=== PATIENT | female | born 1965 | race Caucasian/White ===

== ENCOUNTER → 2019-09-02 | Outpatient (REF) | payer BC ==
[2019-09-02 12:40] LABS: TOTAL 25(OH) VITAMIN D 36.1 NG/ML (30.0-100.0); VITAMIN B12 LEVEL 513 PG/ML
[2019-09-02 12:50] LABS: C REACTIVE PROTEIN QUANTITATIV < 0.30 MG/DL (0.00-0.30); FERRITIN 6 NG/ML (8-252)
== END ==
LOC: M LAB REF 11:24
PROVIDERS: ATTEND Internal Medicine
DX: Z98.84 Bariatric surgery status (principal)

== ENCOUNTER → 2020-09-07 | Outpatient (REF) | payer BC | LOC: M LAB REF 16:11 | PROVIDERS: ATTEND Internal Medicine | DX: Z98.84 Bariatric surgery status (principal) ==

== ENCOUNTER → 2020-12-21 | Outpatient (REF) | payer BC | LOC: M LAB REF 17:00 | PROVIDERS: ATTEND Internal Medicine | DX: Z80.41 Family history of malignant neoplasm of ovary (principal) ==

== ENCOUNTER → 2021-10-05 | Outpatient (CLI) | payer BC | LOC: M WHC 08:53 | PROVIDERS: ATTEND Orthopaedic Surgery | DX: M16.11 Unilateral primary osteoarthritis, right hip (principal); M85.89 Other specified disorders of bone density and structure, multiple sites ==

== ENCOUNTER → 2021-12-27 | Outpatient (REF) | payer BC ==
[2021-12-27 13:39] LABS: C REACTIVE PROTEIN QUANTITATIV < 0.30 MG/DL (0.00-0.30); FERRITIN 7 NG/ML (8-252)
[2021-12-27 14:14] LABS: FOLATE 4.3 NG/ML; VITAMIN B12 LEVEL 346 PG/ML
== END ==
LOC: M LAB REF 11:57
PROVIDERS: ATTEND Internal Medicine
DX: M25.50 Pain in unspecified joint (principal); Z98.84 Bariatric surgery status

== ENCOUNTER → 2022-05-11 | Outpatient (REF) | payer BC ==
[2022-05-11 17:41] LABS: FERRITIN 3.2 NG/ML (7.3-270.7)
[2022-05-12 10:02] LABS: PERCENT SATURATION 13.2 % (13.2-45.0)
[2022-05-12 10:10] LABS: FOLATE 7.8 NG/ML (>5.4)
== END ==
LOC: M LAB REF 16:14
PROVIDERS: ATTEND Internal Medicine
DX: D69.6 Thrombocytopenia, unspecified (principal)

== ENCOUNTER → 2022-06-29 | Outpatient (REF) | payer BC, MEDICAID ==
[~2022-06-29] MED LIST: DULO1CAP6; GABA-282; HYDR200T46; LEVO88TA3; OMEP-173; SUMA25TA3; TOPI100T9
== END ==
LOC: M LAB REF 12:13
PROVIDERS: ATTEND Internal Medicine
DX: Z98.84 Bariatric surgery status (principal)

== ENCOUNTER → 2022-08-23 | Outpatient (CLI) | payer MEDICAID ==
[~2022-08-23] MED LIST changes: +LIDOCAINE 1% MDV 20ML VIAL As Ordered ONE; +MAGN400C2 PO; +MV-M1TAB40 PO; +REST0.05 OP
[2022-08-23 08:45] VITALS: BP 130/76; TEMP 98.1; O2SAT 100
[2022-08-23 09:29] LABS: BASO % 0.3 % (0.0-1.0); EOS # 0.1 10^3/uL (0.0-0.5); EOS % 1.6 % (0.0-3.0); HEMATOCRIT 35.4 % (36.0-47.0); HEMOGLOBIN 11.7 g/dl (12.0-15.5); LYMPH % 31.2 % (24.0-44.0); MEAN CORPUSCULAR HEMOGLOBIN 30.4 pg (27.0-33.0); MEAN CORPUSCULAR HGB CONC 33.1 g/dl (32.0-36.5); MEAN CORPUSCULAR VOLUME 91.9 fl (80.0-96.0); MONO # 0.2 10^3/uL (0.0-0.8); MONO % 5.8 % (2.0-8.0); NEUTROPHILS # 1.9 10^3/uL (1.5-8.5); NEUTROPHILS % 60.8 % (36.0-66.0); PLATELET COUNT, AUTOMATED 117 10^3/uL (150-450); RED BLOOD COUNT 3.85 10^6/uL (4.00-5.40); WHITE BLOOD COUNT 3.1 10^3/uL (4.0-10.0)
== END ==
LOC: M IRPRO 08:32
PROVIDERS: ATTEND Internal Medicine Medical Oncology
DX: D61.818 Other pancytopenia (principal)

== ENCOUNTER → 2022-10-17 | Outpatient (REF) | payer OTHER, MEDICAID ==
[~2022-10-17] MED LIST changes: -LIDOCAINE 1% MDV 20ML VIAL As Ordered ONE
[2022-10-17 18:41] LABS: ALBUMIN 3.9 G/DL (3.2-5.2); ALKALINE PHOSPHATASE 145 U/L (46-116); ALT/SGPT 41 U/L (7.0-40); AST/SGOT 33 U/L (<34); BILIRUBIN,TOTAL 0.6 MG/DL (0.3-1.2); BLOOD UREA NITROGEN 13 MG/DL (9-23); CALCIUM LEVEL 9.8 MG/DL (8.5-10.1); CARBON DIOXIDE LEVEL 27 MMOL/L (20-31); CHLORIDE LEVEL 106 MMOL/L (98-107); CREATININE FOR GFR 0.89 MG/DL (0.55-1.30); GLOMERULAR FILTRATION RATE > 60.0 (>51); GLUCOSE, FASTING 101 MG/DL (60-100); MAGNESIUM LEVEL 2.2 MG/DL (1.8-2.4); POTASSIUM SERUM 4.4 MMOL/L (3.5-5.1); SODIUM LEVEL 137 MMOL/L (136-145); TOTAL PROTEIN 7.4 G/DL (5.7-8.2)
[2022-10-17 18:44] LABS: THYROID STIMULATING HORMONE 1.523 uIU/ML (0.55-4.78)
[2022-10-17 18:45] LABS: BASO % 0.2 % (0.0-1.0); EOS # 0.1 10^3/uL (0.0-0.5); EOS % 1.7 % (0.0-3.0); HEMATOCRIT 43.5 % (36.0-47.0); HEMOGLOBIN 14.4 g/dl (12.0-15.5); LYMPH # 1.6 10^3/uL (1.5-5.0); LYMPH % 34.6 % (24.0-44.0); MEAN CORPUSCULAR HEMOGLOBIN 31.4 pg (27.0-33.0); MEAN CORPUSCULAR HGB CONC 33.1 g/dl (32.0-36.5); MONO # 0.3 10^3/uL (0.0-0.8); MONO % 6.7 % (2.0-8.0); NEUTROPHILS # 2.6 10^3/uL (1.5-8.5); NEUTROPHILS % 56.6 % (36.0-66.0); PLATELET COUNT, AUTOMATED 113 10^3/uL (150-450); RED BLOOD COUNT 4.58 10^6/uL (4.00-5.40); WHITE BLOOD COUNT 4.6 10^3/uL (4.0-10.0)
== END ==
LOC: M LAB REF 16:19
PROVIDERS: ATTEND Internal Medicine
DX: D50.9 Iron deficiency anemia, unspecified (principal); E03.9 Hypothyroidism, unspecified

== ENCOUNTER → 2022-11-10 | Outpatient (CLI) | payer OTHER ==
[~2022-11-10] MED LIST changes: +OMEP20TA17; +amberen
== END ==
LOC: M RAD 07:31
PROVIDERS: ATTEND Internal Medicine Medical Oncology
DX: K76.0 Fatty (change of) liver, not elsewhere classified (principal)

== ENCOUNTER → 2022-12-23 | Outpatient (CLI) | payer OTHER | LOC: M PLARAD 09:39 | PROVIDERS: ATTEND Internal Medicine Medical Oncology | DX: R16.1 Splenomegaly, not elsewhere classified (principal); Z53.8 Procedure and treatment not carried out for other reasons ==

== ENCOUNTER → 2023-04-24 | Outpatient (REF) | payer OTHER | LOC: M LAB REF 13:39 | PROVIDERS: ATTEND Internal Medicine | DX: Z98.84 Bariatric surgery status (principal) ==

== ENCOUNTER → 2023-09-04 | Outpatient (REF) | payer OTHER | LOC: M LAB REF 16:27 | PROVIDERS: ATTEND Internal Medicine | DX: E66.3 Overweight (principal); M89.9 Disorder of bone, unspecified ==

== ENCOUNTER → 2023-10-03 | Outpatient (CLI) | payer OTHER | LOC: M PLAIMG 13:13 | PROVIDERS: ATTEND Internal Medicine | DX: R01.1 Cardiac murmur, unspecified (principal) ==

== ENCOUNTER → 2024-03-19 | Outpatient (CLI) | payer OTHER ==
[~2024-03-19] MED LIST changes: +GABA-1172; -GABA-282; +PROHANCE 279.3MG/ML 15ML VIAL ONE; +PROHANCE 279.3MG/ML 5ML VIAL ONE
== END ==
LOC: M PLAIMG 13:18
PROVIDERS: ATTEND Physical Medicine & Rehabilitation
DX: M81.0 Age-related osteoporosis without current pathological fracture (principal)

== ENCOUNTER → 2024-09-13 | Outpatient (REF) | payer OTHER ==
[~2024-09-13] MED LIST changes: -PROHANCE 279.3MG/ML 15ML VIAL ONE; -PROHANCE 279.3MG/ML 5ML VIAL ONE; +TOPI-257; -TOPI100T9
[2024-09-13 16:16] LABS: CORTISOL AM 8.4 UG/DL (4.3-22.4)
[2024-09-13 16:20] LABS: VITAMIN B12 LEVEL 1933.0 PG/ML (211-911)
== END ==
LOC: M LAB REF 14:54
PROVIDERS: ATTEND Internal Medicine
DX: M25.80 Other specified joint disorders, unspecified joint (principal); Z98.84 Bariatric surgery status